=== PATIENT | female | born 1985 | race Caucasian/White ===

== ENCOUNTER → 2024-08-08 09:24 | Outpatient (CLI) | payer OTHER, SELFPAY ==
--- NOTE | 2024-08-08 | DI.RAD.S_ITS ---
PROCEDURE: XR ABDOMEN 2V INDICATIONS: STOMACH, ABDOMINAL PAIN TECHNIQUE: 2 views of the abdomen were acquired. COMPARISON: None. FINDINGS: Moderate amount of stool throughout the colon in a pattern of constipation. 2 mm calcification left pelvis commonly may represent phlebolith. Left distal ureteral calculus or bladder calculus not excluded. No radiographic evidence of abnormally dilated bowel to suggest obstruction. No free gas. Visualized solid organ contours appear normal in size. IMPRESSION: Pattern of constipation. 2 mm left pelvic calcification. If symptoms persist or worsen, or there is high clinical suspicion of abdominal pelvic abnormality CT could be performed. Dictated by: Adeel Salcedo M.D. on 08/11/2024 at 12:12 Approved by: Adeel Salcedo M.D. on 08/11/2024 at 12:16
== END ==
PROVIDERS: PCP Registered Nurse; Referring Provider Registered Nurse; Visit Provider Registered Nurse
DX: R10.32 Left lower quadrant pain (principal)
CPT/HCPCS: 74019

== ENCOUNTER → 2024-09-12 | Outpatient (CLI) | payer OTHER, SELFPAY | PROVIDERS: PCP Registered Nurse; Referring Provider Registered Nurse; Visit Provider Registered Nurse | DX: Z12.31 Encounter for screening mammogram for malignant neoplasm of breast (principal); Z53.8 Procedure and treatment not carried out for other reasons | CPT/HCPCS: 77063; 77067 ==

== ENCOUNTER → 2024-10-14 11:51 | Outpatient (CLI) | payer OTHER, SELFPAY ==
--- NOTE | 2024-10-14 11:53 | DI.MG.S_ITS ---
BILATERAL DIGITAL DIAGNOSTIC MAMMOGRAM 3D/2D: 10/14/2024 CLINICAL: Breast lump. Baseline mammogram. Family history breast cancer. No prior exams were available for comparison. The breasts are heterogeneously dense, which may obscure small masses (category c / 51-75% glandular tissue). No significant masses, calcifications, or other findings are seen in either breast. IMPRESSION: INCOMPLETE: NEED ADDITIONAL IMAGING EVALUATION There is no abnormality seen in the right breast to correspond with the area of clinical concern and palpable abnormality indicated by triangular marker in the anterior depth in the upper outer quadrant, however, ultrasound is recommended for further evaluation and is scheduled to immediately follow this examination. Based on Tyrer-Cuzick model (a risk assessment model), the patient's lifetime risk is 70.9% and her 10 year risk is 37.0%. If a patient has an elevated risk, a more comprehensive evaluation should be considered and/or a referral to a genetic counselor. The [place] [employer], [place] [employer], and NCCN Guidelines advise the consideration of Breast MRI as an adjunct to screening mammography in patients whose Lifetime risk to develop breast cancer is 20% or higher. This exam was interpreted at Station ID: [id number]. NOTE: For mammograms, a report in lay terms will be sent to the patient. Approximately 15% of breast malignancies will not be visualized mammographically. In the management of a palpable breast mass, a negative mammogram must not discourage biopsy of a clinically suspicious lesion. Electronically Signed By: Oswaldo De La Vega M.D. aty/:10/14/2024 12:43:07 letter sent: Additional Imaging Needed ACR BI-RADS Category 0: Incomplete: Need Additional Imaging Evaluation
--- NOTE | 2024-10-14 11:53 | DI.US.S_ITS ---
LIMITED ULTRASOUND OF RIGHT BREAST AND AXILLA: 10/14/2024 CLINICAL: Palpable right breast lump. Comparison is made to exam dated: 10/14/2024 mammogram - [facility]. Real-time ultrasound of the right breast 12 o'clock, and axilla regions was performed. Callahan scale images of the real-time examination were reviewed. No significant abnormalities were seen sonographically in the right breast. IMPRESSION: NEGATIVE There is no sonographic evidence of malignancy. There is no abnormality seen in the right breast to correspond with the area of clinical concern and palpable abnormality at 12 o'clock, however, recommend clinical follow up for persistent or worsening symptoms, or development of any clinically suspicious findings. A 1 year screening mammogram is recommended. Additionally, patient has an elevated lifetime risk for breast cancer of greater than 20% with testing positive for BRCA. Recommend screening breast MRI as an adjunct to screening mammography. Findings and recommendations were conveyed to the patient during today's evaluation. This exam was interpreted at Station ID: [id number]. Electronically Signed By: Oswaldo De La Vega M.D. at/:10/14/2024 13:19:19 letter sent: Clinical Evaluation ACR BI-RADS Category 1: Negative
== END ==
PROVIDERS: PCP Registered Nurse; Referring Provider Registered Nurse; Visit Provider Registered Nurse
DX: R92.333 Mammographic heterogeneous density, bilateral breasts (principal); Z15.01 Genetic susceptibility to malignant neoplasm of breast; Z15.02 Genetic susceptibility to malignant neoplasm of ovary; R92.2 Inconclusive mammogram; Z15.09 Genetic susceptibility to other malignant neoplasm
CPT/HCPCS: 76642; 77066; G0279

== ENCOUNTER → 2025-03-16 10:41 | Outpatient (CLI) | payer OTHER, SELFPAY ==
--- NOTE | 2025-03-16 10:43 | DI.MRI.S_ITS ---
MR breast BI wo/w con: 03/16/2025. BI-RADS: 1 CLINICAL: 39-year old female for bilateral diagnostic breast MRI. Current reported family history of breast cancer: mother and sister. The patient is a BRCA1 gene mutation carrier. PRIOR EXAMS: Mammogram 10/14/2024 Breast Ultrasound 10/14/2024. MRI TECHNIQUE: Bilateral breast MRI was performed on a 1.5 Valentina magnet using a dedicated breast coil with mild compression. Axial T1 and T2 STIR sequences were obtained. Dynamic contrast enhanced VIBRANT fat-suppressed sequences were obtained. Delayed sagittal high resolution or sagittal reconstructed isotropic sequence was also obtained. Subtraction images and maximum intensity projection images were obtained. The study was evaluated using CoreFlow software. Prohance was injected intravenously: 20 mL. FIBROGLANDULAR TISSUE Bilateral: C. Heterogeneous fibroglandular tissue. BACKGROUND PARENCHYMAL ENHANCEMENT Bilateral: Mild symmetrical background parenchymal enhancement. BREAST FINDINGS Bilateral: There is no suspicious enhancement or lymphadenopathy. IMPRESSION: * No evidence of malignancy. RECOMMENDATIONS Bilateral * According to the Tyrer-Cuzick Risk Assessment Model, based on the information provided your patient has a greater than 20% lifetime risk for developing breast cancer. Consider supplemental screening with breast MRI and participation in a high risk screening program. * Annual screening mammography. OVERALL ASSESSMENT CATEGORY BI-RADS-1: Negative. ELECTRONICALLY SIGNED: Анна Rg M.D. on 03/16/2025 at 04:47:10 PM PT Interpreting Station ID: [id number]
== END ==
LOC: MRI 10:42
PROVIDERS: PCP Registered Nurse; Referring Provider Registered Nurse; Visit Provider Registered Nurse
DX: R92.333 Mammographic heterogeneous density, bilateral breasts (principal); Z91.89 Other specified personal risk factors, not elsewhere classified; Z15.01 Genetic susceptibility to malignant neoplasm of breast; Z15.02 Genetic susceptibility to malignant neoplasm of ovary; Z15.09 Genetic susceptibility to other malignant neoplasm; Z80.3 Family history of malignant neoplasm of breast
CPT/HCPCS: 77049; A9579

== ENCOUNTER → 2025-10-10 09:06 | Outpatient (CLI) | payer OTHER, SELFPAY ==
--- NOTE | 2025-10-10 09:07 | DI.MRI.S_ITS ---
PROCEDURE: MR HEAD/BRAIN WO CON INDICATIONS: NEW ONSET HEADACHES TECHNIQUE: Noncontrast axial T1 spin echo, axial T2 fast spin echo, sagittal and axial FLAIR, coronal T2 fast spin echo, axial gradient echo, axial diffusion and ADC through the brain. COMPARISON: None. FINDINGS: Image quality: Excellent. CSF Spaces: Basal cisterns are patent. No extra-axial fluid collections. Ventricles are normal in size and shape. Brain: No intracranial masses or hemorrhage. Few small foci of T2/FLAIR hyperintense signal within the supratentorial white matter. Callahan/white matter interface is normal. Brainstem appears normal. Diffusion-weighted images demonstrate no acute infarct. No chronic ischemic insults. Normal intravascular flow voids are present. Skull and face: Calvarium has normal marrow signal. Orbits appear normal. Sinuses: Mild mucosal thickening of the left frontal sinus and ethmoid air cells with opacification of a few ethmoid air cells. The mastoids are clear. IMPRESSION: Few small foci of supratentorial T2/FLAIR hyperintense signal which are nonspecific and may represent sequela of migraines. Other differential etiologies include early chronic microvascular ischemic change, sequela of vasculitis or a demyelinating process, recommend clinical correlation. Otherwise, no acute intracranial abnormalities. Dictated by: Gil Obrien M.D. on 10/10/2025 at 19:35 Approved by: Gil Obrien M.D. on 10/10/2025 at 19:37
== END ==
PROVIDERS: PCP Registered Nurse; Referring Provider Registered Nurse; Visit Provider Registered Nurse
DX: G44.52 New daily persistent headache (NDPH) (principal); R11.0 Nausea; R42 Dizziness and giddiness
CPT/HCPCS: 70551